=== PATIENT | female | born 1990 | race Caucasian/White ===

== ENCOUNTER 2020-12-23 23:41 | Emergency (ER) | payer MEDICAID ==
[~2020-12-23] VITALS: Ht 147.3 cm; Wt 92.5 kg
[~2020-12-23 23:41] MED LIST: IBUP100O24 PO; LEVO500T47 PO; METF750T42 PO; OXYC1TAB14 PO; PREN1TAB60 PO; ZOLP-413 PO
[2020-12-24] MEDS ORDERED: KETOROLAC 30 MG/1 ML ONE (00:35)
[2020-12-24] MEDS ORDERED: KETOROLAC 30 MG/1 ML IM ONE (01:00)
[2020-12-24 02:08] VITALS: BP 122/86
--- NOTE | 2020-12-24 02:15 | NUR ---
PT SITTING UPRIGHT ON GURNEY, RESTING CALMLY. REPORTS PAIN RELIEF FOLLOWING TILE SORTER. NO ADDITIONAL NEEDS AT THIS TIME. CALL LIGHT IN REACH. FRIEND AT BEDSIDE.
--- NOTE | 2020-12-24 02:48 | NUR ---
Patient given discharge instructions and they have confirmed that they understand the instructions. Patient ambulatory with crutch walking.
== END 2020-12-24 02:50 | disposition home or self-care (01) ==
LOC: ED 12-24 00:11
DX: S92.352A Displaced fracture of fifth metatarsal bone, left foot, initial encounter for closed fracture (principal); E11.9 Type 2 diabetes mellitus without complications; J45.909 Unspecified asthma, uncomplicated; F17.210 Nicotine dependence, cigarettes, uncomplicated; Z72.9 Problem related to lifestyle, unspecified; Z90.89 Acquired absence of other organs; X58.XXXA Exposure to other specified factors, initial encounter; Y93.89 Activity, other specified; Y92.89 Other specified places as the place of occurrence of the external cause; Y99.8 Other external cause status
CPT/HCPCS: 29515; 73630; 82962; 96372; 99283; J1885